=== PATIENT | female | born 1975 | race African-American/Black ===

== ENCOUNTER 2022-05-03 13:51 | Emergency (ER) | payer BC, SELFPAY ==
[2022-05-03] MEDS ORDERED: Ketorolac Tromethamine 30 MG/ML VIAL ONE (16:53)
== END 2022-05-03 17:44 | disposition home or self-care (01) ==
LOC: CSHERS 13:51
DX: M25.561 Pain in right knee (principal); F17.210 Nicotine dependence, cigarettes, uncomplicated
CPT/HCPCS: 96372; J1885